=== PATIENT | female | born 1935 | race Caucasian/White ===

== ENCOUNTER → 2017-03-31 | Outpatient (CLI) | payer MEDICARE ==
--- NOTE | 2017-03-31 10:48 | REP ---
Bilateral lower extremity duplex venous ultrasound with reflux evaluation: History: Swelling and pain. Question venous reflux disease. Findings: The deep veins are anechoic and fully compressible from the groin to the popliteal fossa in both lower extremities on two-dimensional scanning. Color flow imaging is homogeneous. Spectral Doppler interrogation demonstrates intact respiratory variation in flow and normal manual augmentation of flow. There is no evidence of DVT on either side. Reflux evaluation: In the left lower extremity there is no evidence of venous reflux at any level. The greater saphenous vein measures 5 mm in AP dimension at the saphenofemoral junction, 5 mm in AP dimension at midthigh, and 4 mm at the knee. The lesser saphenous vein measures 3 mm. On the right, there is minimal reflux at the common femoral vein. Otherwise no reflux is seen. The greater saphenous vein measures 5 mm at the saphenofemoral junction, 3 mm at midthigh, and 4 mm at the knee. The lesser saphenous vein measures 5 mm. Impression: No significant venous reflux. No evidence of DVT. Signed by Alexis Eisenberg MD 03/31/2017 01:25 P
== END ==
LOC: M RAD 08:41
PROVIDERS: ATTEND Surgery Vascular Surgery
DX: I87.2 Venous insufficiency (chronic) (peripheral) (principal)